=== PATIENT | male | born 1975 | race Caucasian/White ===

== ENCOUNTER 2019-11-11 09:00 | Emergency (ER) | payer MEDICAID ==
[~2019-11-11] VITALS: Ht 167.6 cm; Wt 82.1 kg
[2019-11-11 09:03] VITALS: Ht 167.6 cm; Wt 82.1 kg
[2019-11-11 10:28] VITALS: BP 170/98
== END 2019-11-11 10:28 | disposition home or self-care (01) ==
LOC: ED 09:00
DX: S22.31XA Fracture of one rib, right side, initial encounter for closed fracture (principal); X50.0XXA Overexertion from strenuous movement or load, initial encounter; Y93.89 Activity, other specified; Y92.89 Other specified places as the place of occurrence of the external cause; Y99.8 Other external cause status
CPT/HCPCS: J1885